=== PATIENT | female | born 1945 | race Caucasian/White ===

== ENCOUNTER → 2017-10-31 | Outpatient (CLI) | payer MEDICARE ==
[~2017-10-31] MED LIST: CALCIUM 600 +1 EAC1 PO; DITROPAN XL10 M1 PO; FOLIC ACID1 MG PO; KLOR-CON 1010 MEQ PO; PROBIOTIC1 EAC1 PO; REQUIP 1 MG TABL1 M1 PO; VITAMIN B-12500 MCG PO; VITAMIN E400 UNI5 PO; ZOCOR20 MG PO; ZOLOFT50 MG
--- NOTE | 2017-10-31 15:28 | 2DMMODE ---
[place] [address] 2 D/M-MODE ECHOCARDIOGRAM Name: LYNN DE LA FUENTE Room: [facility]#: [id number] Admission: 10/31/17 Attend Phys: Farzad Atkinson Discharge: Date of : 41 Date of Service: 10/31/17 1527 Report #: [id number] THIS REPORT FOR: //name// APPROVED REPORT Study performed: 10/31/2017 08:09:32 EXAM: Comprehensive 2D, Doppler, and color-flow Echocardiogram Patient Location: Out-Patient Status: routine BSA: 1.66 HR: 56 bpm BP: 138/82 mmHg Other Information Study Quality: Good Indications CAD 2D Dimensions LVEF(%): 58.48 (>50%) IVSd: 9.76 (7-11mm) LVOT Diam: 19.85 (18-24mm) LVDd: 41.41 mm PWd: 9.03 (7-11mm) Ascending Ao: 31.41 (22-36mm) LVDs: 28.76 (25-40mm) Aortic Root: 22.15 mm Gaspar's LVEF: 58.48 % Volumes Left Atrial Volume (Systole) LA ESV Index: 19.10 mL/m2 Aortic Valve AoV Peak Adam.: 1.03 m/s AO Peak Gr.: 4.27 mmHg LVOT Max P.50 mmHg AO Mean Gr.: 2.08 mmHg LVOT Mean P.21 mmHg LVOT Max V: 0.79 m/s AO V2 VTI: 21.99 cm LVOT Mean V: 0.50 m/s DARCY (VTI): 2.97 cm2 LVOT V1 VTI: 21.09 cm Mitral Valve E/A Ratio: 1.04 MV Decel. Time: 215.48 [place] [address] 2 D/M-MODE ECHOCARDIOGRAM Name: LYNN DE LA FUENTE Room: [facility]#: [id number] Admission: 10/31/17 Attend Phys: Farzad Atkinson Discharge: Date of : 41 Date of Service: 10/31/17 1527 Report #: [id number] MV E Max Adam.: 0.87 m/s MV PHT: 62.49 ms MVA (PHT): 3.52 cm2 TDI E/Lateral E': 8.70 E/Medial E': 9.67 Medial E' Adam.: 0.09 m/s Lateral E' Adam.: 0.10 m/s Pulmonary Valve PV Peak Adam.: 0.87 m/s PV Peak Gr.: 3.05 mmHg Tricuspid Valve TR Peak Gr.: 18.02 mmHg RVSP: 23.02 mmHg Left Ventricle The left ventricle is normal size. There is normal LV segmental wall motion. There is normal left ventricular wall thickness. Left ventricular systolic function is normal. LVEF is 55-60%. Transmitral Doppler flow pattern suggests impaired LV relaxation. Right Ventricle The right ventricle is normal size. The right ventricular systolic function is normal. Atria The left atrium size is normal. The right atrium size is normal. Aortic Valve The aortic valve is normal in structure. No aortic regurgitation is present. There is no aortic valvular stenosis. Mitral Valve The mitral valve is normal in structure. Mild mitral regurgitation. No evidence of mitral valve stenosis. Tricuspid Valve The tricuspid valve is normal in structure. Mild tricuspid regurgitation. The RVSP is __23 mmHg. Pulmonic Valve The pulmonary valve is normal in structure. There is no pulmonic valvular regurgitation[place] [address] 2 D/M-MODE ECHOCARDIOGRAM Name: LYNN DE LA FUNETE Room: [facility]#: [id number] Admission: 10/31/17 Attend Phys: Farzad Atkinson Discharge: Date of : 41 Date of Service: 10/31/17 1527 Report #: [id number] The aortic root is normal in size. IVC is normal in size and collapses with >50% inspiration Pericardium There is no pericardial effusion. <Conclusion> The left ventricle is normal size. There is normal left ventricular wall thickness. Left ventricular systolic function is normal. LVEF is 55-60%. Transmitral Doppler flow pattern suggests impaired LV relaxation. Mild tricuspid regurgitation. The RVSP is __23 mmHg. IVC is normal in size and collapses with >50% inspiration <ELECTRONICALLY SIGNED> By: Armin Tena MD, FACC 10/31/17 1527 1527 1527 Armin Tena MD, FACC /INF
== END ==
LOC: M.ULTRA 10-26 10:00 → M.CRD 07:47 → M.ULTRA 09:00
DX: I08.1 Rheumatic disorders of both mitral and tricuspid valves (principal); I25.10 Atherosclerotic heart disease of native coronary artery without angina pectoris; I77.9 Disorder of arteries and arterioles, unspecified; R55 Syncope and collapse

== ENCOUNTER 2018-04-25 00:54 | Inpatient (IN) | payer MEDICARE ==
[~2018-04-25] VITALS: Ht 165.1 cm; Wt 65.3 kg
[2018-04-25] VITALS (9 sets, daily range): BP systolic 112–167; BP diastolic 58–92
[2018-04-25] MEDS ORDERED: REQUIP 1 MG TABL1 M1 PO (01:05)
[2018-04-25] MEDS ORDERED: ZOCOR20 MG PO (01:06)
[2018-04-25] MEDS ORDERED: ZOLOFT50 MG (01:07)
[2018-04-25] MEDS ORDERED: DITROPAN XL10 M1 PO (01:07)
[2018-04-25] MEDS ORDERED: VITAMIN B-12500 MCG PO (01:07)
[2018-04-25] MEDS ORDERED: CALCIUM 600 +1 EAC1 PO (01:08)
[2018-04-25] MEDS ORDERED: FOLIC ACID1 MG PO (01:08)
[2018-04-25] MEDS ORDERED: KLOR-CON 1010 MEQ PO (01:09)
[2018-04-25] MEDS ORDERED: VITAMIN E400 UNI5 PO (01:10)
[2018-04-25] MEDS ORDERED: PROBIOTIC1 EAC1 PO (01:10)
[2018-04-25 01:29] LABS: ABSOLUTE BASOPHILS 0.1 thou/uL (0.0-0.2); ABSOLUTE EOSINOPHILS 0.3 thou/uL (0.0-0.7); ABSOLUTE LYMPHOCYTES 2.1 thou/uL (0.8-5.3); ABSOLUTE MONOCYTES 0.7 thou/uL (0.0-1.2); ABSOLUTE NEUTROPHILS 4.2 thou/uL (1.6-8.1); EOSINOPHILS 4.1 %; HEMATOCRIT 38.7 % (37.0-47.0); HEMOGLOBIN 12.9 gm/dL (12.0-15.0); LYMPHOCYTES 27.9 %; MCH 32.4 pg (26.0-34.0); MCHC 33.4 g/dL (28.0-37.0); MCV 97.1 fL (80.0-100.0); MONOCYTES 9.9 %; MPV 7.5 fl. (7.2-11.1); NUCLEATED RBCS 0 /100WBC; PLATELET COUNT* 257 thou/uL (150-400); POLYS 57.1 %; RBC 3.99 mil/uL (4.20-5.00); RDW-CV 13.4 % (10.5-14.5); WBC 7.4 thou/uL (4.0-11.0)
[2018-04-25 01:42] LABS: ANION GAP 5 mmol/L (7-16); BUN 23 mg/dL (7-18); CHLORIDE 106 mmol/L (98-107); CO2 32 mmol/L (21-32); CREATININE 1.1 mg/dL (0.6-1.3); GLUCOSE 113 mg/dL (70-99); POTASSIUM 3.5 mmol/L (3.5-5.1); SODIUM 143 mmol/L (136-145)
[2018-04-25 01:49] LABS: ALBUMIN 3.5 g/dL (3.4-5.0); ALKALINE PHOSPHATASE 80 U/L (46-116); SGOT 16 U/L (15-37); SGPT 21 U/L (30-65); TOTAL BILIRUBIN 0.2 mg/dL (<0.1-1.0); TOTAL PROTEIN 5.9 g/dL (6.4-8.2); TROPONIN-I LEVEL <0.06 ng/mL (<0.06)
--- NOTE | 2018-04-25 04:40 | NUR ---
RECEIVED REPORT FROM PHYSICAL MEDICINE PHYSICIAN, ZULMA, AT 0239. PT ARRIVED VIA CART AT 0250. PT PLACED ON FORMING DEPARTMENT END FINDER. TRACING SINUS RHYTHM, DENIES PAIN. NEGATIVE FOR SEPSIS PROTOCOL. FALL PRECAUTIONS IN PLACE. NPO FOR CARDIOLOGY CONSULT. PT EDUCATED AND VERBALIZED UNDERSTANDING. HOURLY ROUNDING COMPLETED. CALL LIGHT WITHIN REACH.
[2018-04-25 09:54] LABS: APTT 24.8 Seconds (25.0-31.3); PROTIME 9.8 Seconds (9.20-11.50)
--- NOTE | 2018-04-25 10:07 | EKG ---
[place] [address] ELECTROCARDIOGRAM REPORT Name: LYNN DE LA FUENTE Room: [address] ADM IN [facility].#: [id number] Admission: 04/25/18 Attend Phys: Des [place] MD Discharge: Date of : 41 Report #: [id number] THIS REPORT FOR: //name// 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 : 1945 Requested By: Pamela Slater Order Number: [id number] MD: Nicolas Cordova Measurements Intervals [place] Rate: 65 P: 67 CT: 172 QRS: 23 QRSD: 84 T: 44 QT: 414 QTc: 431 Interpretive Statements Sinus rhythm septal infarct, old Baseline wander in lead(s) V3,V4,V5 No previous ECG available for comparison Electronically Signed On 04-25-2018 10:07:01 CDT by Nicolas Cordova [email or web address] <ELECTRONICALLY SIGNED> By: Nicolas Cordova MD, [facility] 04/25/18 1007 0100 0100 Nicolas Cordova MD, [facility] /EPI
--- NOTE | 2018-04-25 11:43 | NUR ---
Pt is A&O. Normally active and independent. Resides at home alone. No DME. Pt having pacer placed today. Supportive sister that is invovled in POC. Goal is to return home at mt. No hx of HH or SNF. Following.
--- NOTE | 2018-04-25 18:30 | NUR ---
RECEIVED REPORT FROM NIRANJAN WORTHY. ASSUMED CARE OF PT AROUND 0730. PT A&O X4. VSS. O2 SAT 99% ON RA. AM ASSESSMENT AND VITALS COMPLETED CHARTED. GLUER AND WEDGER IN PLACE TRACING SR TO SB WITH NO CHAGNES THIS SHIFT. IV TO LEFT AC INTACT AND SALINE LOCKED. PT RECEIVED PACEMAKER THIS SHIFT - LEFT CHEST SITE IS C,D,I, SEALED WITH DERMABOND. PT AWARE OF POST-PROCEDURE PRECAUTIONS. PT EATING AND DRINKING WITHOUT ISSUE. FAMILY AT BEDSIDE. PT DENIES PAIN OR DISCOMFORT. PT UP WITH SBA TO BATHROOM TO VOID, NO ISSUES. PT CURRENTLY RESTING IN BED. FALL PRECAUTIONS IN PLACE. CALL LIGHT IS WITHIN REACH. HOURLY ROUNDING PERFORMED.
--- NOTE | 2018-04-25 18:35 | CARD ---
[address] [address] CARDIAC CATH REPORT Name: LYNN DE LA FUENTE Room: [address] IN [facility]#: [id number] Admission: 04/25/18 Attend Phys: Des Ramires MD Discharge: Date of : 41 Report #: [id number] THIS REPORT FOR: //name// APPROVED REPORT Study performed: 04/25/2018 13:54:45 Patient Status: In-Patient Room #: 214 Event Personnel: Nicolas Cordova Briar Shop Supervisor, Sarah White RN Pet Walker, Leona Mcgraw Monitor, Rohith Cano (R) Scrub, Mely Santiago RTR Scrub Exam: Insertion of Dual Chamber Permanent Pacemaker Indications: Sick Sinus Syndrome/Tachy Srikanth Syndrome The patient is a 73 year-old female with a history of Syncope. Conscious Sedation Start time: 14:35 End Time: 16:00 Fentanyl 25 mcg Versed 2 mg Implanted Devices: permanent dual chamber mri compatible biotronic pacemaker Procedure The patient underwent informed consent. We discussed the details of the procedure including the risks, which include, but not limited to bleeding, infection, vascular damage, cardiac perforation, and pneumothorax. She understood these risks and was willing to proceed. As such, she was brought to the EP/Cardiac Catheterization laboratory in a fasting and sedated state and prepped and draped in a sterile fashion, received IV antibiotics prior to initiation of the procedure and a venogram was performed showing patency of the left axillary vein. The patient underwent conscious sedation, with no related complications. The patient was brought to the EP/Cardiac Catheterization laboratory and the left chest and shoulder were prepped and draped in a sterile manner. During this case, Fluoroscopy and low osmolar contrast were used for imaging. The left subclavian region was infiltrated with 2% Lidocaine subcutaneous anesthesia. A transverse incision was made in the left upper chest cavity. The subcutaneous pocket was [place] [address] CARDIAC CATH REPORT Name: LYNN DE LA FUENTE Room: [address] IN [facility].#: [id number] Admission: 04/25/18 Attend Phys: Des [place] MD Discharge: Date of : 41 Report #: [id number] venous access was achieved and an introducer sheath was inserted into the left Subclavian vein. Sheaths were positions using the modified Seldinger technique Through the introducer sheaths the atrial and ventricular lead wires were positioned in the right atrial appendage and right ventricular apex respectively. Utilizing fluoroscopic guidance, the atrial and ventricular lead wires were advanced over the wires and positioned in the right atria and right ventricle respectively. Capturing and sensing thresholds were verified. Electrode Parameters P Wave: 2.0 mv R Wave: 10.2 mv Atrial Threshold: 0.9 v @ 0.4 ms Ventricular Threshold: 0.9 v @ o.4 ms Atrial Resistance: 472 ohm Ventricular Resistance: 745 ohm Dual Chamber The atrial and ventricular leads were then secured using 0 silk sutures. The subcutaneous pocket was irrigated with ancef antibiotic solution.The atrial and ventricular leads were attached to the appropriate receptacles on the pulse generator and set screws firmly tightened to insure adequate contact and stability. The lead and pulse generator were placed into the subcutaneous pocket. Sharp and sponge counts were confirmed to be correct. At this time the pocket was closed subcutaneously with a 0 Vicryl and the skin was closed with a 4.0 Vicryl. The operative site was dressed in sterile fashion with skin affix and the patient was transferred to the floor in stable condition. Complications The patient tolerated the procedure well and there were no complications associated with the procedure. Conclusion successful placement of a dual chamber pacemaker <ELECTRONICALLY SIGNED> By: Nicolas Cordova MD, FACC 04/25/18 1834 183 1834Dalice Cordova MD, FACC /INF
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
[2018-04-26] VITALS: BP 102/37
[2018-04-26 04:00] VITALS: BP 130/94
--- NOTE | 2018-04-26 04:45 | NUR ---
ASSUMED PT CARE AT 1930. NURSING ASSESSMENT COMPLETED AT START OF SHIFT. PT VOICED NO CONCERNS. INCISION TO LEFT UPPER CHEST CLEAN, DRY, INTACT. VOCALIZED PAIN, PRN PAIN MEDICAITON ADMNISTERED PER EMAR. HOURLY ROUNDING COMPLETED. CALL LIGHT WITHIN REACH. NEGATIVE SEPSIS SCREENING.
[2018-04-26 07:40] VITALS: BP 157/73
[2018-04-26 11:26] VITALS: BP 99/45
[2018-04-26 11:41] VITALS: BP 99/45
[2018-04-26 12:25] VITALS: BP 133/71
--- NOTE | 2018-04-26 15:29 | NUR ---
PER HOSPITALIST AND CARDIOLOGY PATIENT CLEAR TO GO HOME. GIVEN [id number] UP CARD WITH CARDIOLOGY. VOICED UNDERSTANDING OF DISCHARGE INSTRUCTIONS. LEFT UNIT AMBULATORY WITH MEAT SPECIALIST AT 1520. ALL BELONGINGS TAKEN WITH DAUGHTER.
--- NOTE | 2018-04-26 16:36 | EKG ---
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: : 1945 Requested By: Nicolas Cordova Order Number: [id number] Ruddy MD: Magan Ashford Measurements Intervals [place] Rate: 65 P: [place]: 153 QRS: 29 QRSD: 80 T: 42 QT: 433 QTc: 451 Interpretive Statements Atrial-paced rhythm Anteroseptal infarct, old posssible Compared to ECG 04/25/2018 01:00:45 Sinus rhythm no longer present Myocardial infarct finding still present Electronically Signed On 04-26-2018 16:36:30 CDT by Magan Ashford [email or web address] <ELECTRONICALLY SIGNED> By: Magan Ashford MD, [facility] 04/26/18 1636 0814 0814 Magan Ashford MD, [facility] /EPI
== END 2018-04-26 15:20 | disposition home or self-care (01) | DRG 244 ==
LOC: M.ERS 00:54 → M.TBA-ER 02:02 → M.2W 02:02
PROVIDERS: Internal Medicine Cardiovascular Disease; Personal Emergency Response Attendant; ADMIT Internal Medicine
PROC: 0JH606Z Insertion of Pacemaker, Dual Chamber into Chest Subcutaneous Tissue and Fascia, Open Approach (ICD-10-PCS; principal; 2018-04-25)
PROC: B51N1ZZ Fluoroscopy of Left Upper Extremity Veins using Low Osmolar Contrast (ICD-10-PCS; principal; 2018-04-25)
PROC: 02HK3JZ Insertion of Pacemaker Lead into Right Ventricle, Percutaneous Approach (ICD-10-PCS; principal; 2018-04-25)
PROC: 02H63JZ Insertion of Pacemaker Lead into Right Atrium, Percutaneous Approach (ICD-10-PCS; principal; 2018-04-25)
DX: I49.5 Sick sinus syndrome (principal); I45.5 Other specified heart block; M06.9 Rheumatoid arthritis, unspecified; G25.81 Restless legs syndrome; E78.00 Pure hypercholesterolemia, unspecified; I49.9 Cardiac arrhythmia, unspecified; Z79.899 Other long term (current) drug therapy; Z92.21 Personal history of antineoplastic chemotherapy; Z87.891 Personal history of nicotine dependence; Z23 Encounter for immunization